=== PATIENT | female | born 1940 | race Caucasian/White ===

== ENCOUNTER 2021-04-05 17:56 | Emergency (ER) | payer MEDICARE, SELFPAY ==
[2021-04-05 18:05] VITALS: BP 157/55; PULSE 89; RESP 16; TEMP 36.4; O2SAT 97
--- NOTE | 2021-04-05 18:15 | DI.RAD_ITS ---
Exam(s) XR FINGER LT RING EXAM: XR FINGER LT RING EXAM DATE/TIME: CLINICAL HISTORY: deformity after fall, concern for dislocation. TECHNIQUE: 2D digital imaging was performed of the left finger. Views were obtained. PA/AP, obliq ue, and lateral views were obtained. COMPARISON: None. FINDINGS: BONES: No acute fracture is present. No bony destructive lesion is seen. Osteopenia. JOINTS: No dislocation is present. SOFT TISSUE: Mild soft tissue swelling. IMPRESSION: No evidence of acute fracture or dislocation. DATA REPOSITORY: RADIATION DOSE DELIVERED:
--- NOTE | 2021-04-05 18:18 | ED.GENADUL_ITS ---
Discharge Plan Disposition Patient Disposition: HOME Condition: Stable Discharge Details Clinical Impression: Dislocated finger, Chin laceration, Laceration of lip, Muscle spasm Primary Care Provider: Unknown,Unknown ED Provider: Savanna Melgar Home Meds and New Rx's Prescriptions: Continued amlodipine 2.5 mg Tablet 2.5 mg PO DAILY RF: 0 simvastatin 20 mg Tablet 20 mg PO DAILY RF: 0 losartan-hydrochlorothiazide 100-12.5 mg Tablet 1 tab PO DAILY RF: 0 Discharge Instructions Instructions: Cephalexin (By mouth), Oxycodone, Rapid Release (By mouth), Laceration (ED), Muscle Spasm (ED) Additional Instructions: Your imaging today is reassuring. No fracture or dislocation. Your neck does have findings to suggest whip lash as discussed. To help with muscle spasm, encourage hydration, use heat or ice, gentle stretching and Tylenol and/or Ibuprofen. You may use the oxycodone as prescribed for pain if this is insufficient. Please do not drink alcohol or drive while taking this medication. Keep in a safe place. Please keep your splint on your finger until evaluated by orthopedics. Please call primary care tomorrow to arrange for follow up with orthopedics once you return home for finger dislocation. In regard to your mouth laceration, you have a through and through wound from ch in to inner lip. Please rinse with salt water after every meal and before bed. To prevent infection, please take the antibiotics as prescribed. Please return in one week for the sutures on your chin to be removed and wound evaluated. If you develop fevers/chills, increased pain or other new/worsening symptoms please seek care urgently once again. Discharge Data Discharge Date/Time-TO BE ENTERED AT DEPARTURE: 04/05/21 20:41 Medical Decision Making Patient is a pleasant 80-year-old female presenting today with chief complaint of facial trauma and left ring finger trauma after fall today. She reports that she over a rug and fell striking her chin on the floor. Denies any headache. No loss of consciousness. She denies any pain in her neck. Denies any shortness of breath or chest pain. Patient did suffer a laceration under the chin that goes through and through into the inner aspect of the lower lip. She reports that she did have 1 glass of wine prior to the fall. However, states that this is not unusual and that she typically has a glass of wine daily. Also suffered injury to the left ring finger leading to flexion deformity. Unknown tetanus status, patient feels that this is likely out of state. Will update today. On exam, patient appears nontoxic. Vital signs are stable. No evidence to suggest a skull fracture. However, she does have significant laceration under the chin that extends up through the lower lip. This does not go under the tongue or behind the teeth. No active bleeding. No evidence to suggest fracture. Patient is able to break tongue blade on both sides of her teeth. She does not have any midline cervical tenderness. Good range of motion. No pain on palpation about the chest, abdomen. Pelvis is stable. No saddle paresthesias. No midline tenderness in the spine. She does have deformity to the left ring finger. At the PIP joint, patient is seem to have locked in flexion. However, with passive extension it seems to release and allow for movement. However, when she fully flexes again the finger again becomes stuck in this position. Sensation is intact, capillary refill intact. No focal fracture deformity. Will obtain x-ray of the left ring finger. Patient's age as well as that she had alcohol prior to arrival has no significant fall, I do feel that imaging of her head and neck would be appropriate. We will give morphine for discomfort.. FINDINGS: Brain: No edema or hemorrhage. Cerebral ventricles: No ventriculomegaly. Paranasal sinuses: No acute sinusitis. Mastoid air cells: No mastoid effusion. Bones/joints: No acute fracture. Soft tissues: No suspicious lesions. IMPRESSION: No acute intracranial findings FINDINGS: Orbital cavity: The bony orbits are intact. The globe and lens are intact bilaterally. No significant retroconal collections. Bones/joints: Allowing for dental artifact mandible is intact. No acute fracture with attention to the zygomatic arches, pterygoid plates, maxilla, nasal bones, pterygoid plates, sphe noid bone. Paranasal sinuses: Minor mucosal thickening in the maxillary sinuses. Soft tissues: Soft tissue swelling and emphysema in the left pre mandibular region associated with a laceration. IMPRESSION: No acute bony pathology. FINDINGS: Bones/joints: Straightening of the normal cervical lordosis. No acute fracture or subluxation. Discs/Spinal canal/Neural foramina: Multilevel degenerative changes, multilevel neural foraminal and central canal stenosis . Lungs: No consolidation. Soft tissues: Coarse calcifications in the region of ligamentum nuchae, probably chronic soft tissue trauma. IMPRESSION: No cervical spine fracture Discussed findings with the patient. Patient discussed with/benefits as well seasonal steps assisted with closure. She voices understanding and wishes to proceed. Please see procedure note. Patient tolerated this well. Patient was sufficiently anesthetized with 1% lidocaine With epinephrine. Wound was explored to base in a bloodless field. Copiously irrigated. I not note any foreign body or debris. Absorbable stitches were placed internally and patient was closed with simple interrupted externally. We discussed wound care in depth. Particularly with the internal wound, I would like to to rinse with salt water frequently to help with any type of infection. With this through and through wound, I am concerned about potential infection. We will begin her on Keflex. In regard to the patient's finger, I am concerned for potential ligamentous injury. Patient will be splinted in extension. Encourage rest, ice, elevation. Tylenol and ibuprofen as needed for discomfort. Patient will be discharged home with small amount of oxycodone to help with the mouth and discomfort from her laceration. We did discuss safety regarding constipation. I asked that she not have any alcohol while using this medication. Encourage hydration. Advised ice to affected areas. I did encourage that she try to sleep in a more upright position swelling. Patient is from [place] and will be returning home soon. Is unclear if she will have the sutures removed here or at home based on when she goes back to [place]. And also she has been the week. Return precautions in regard to infection or other complication were discussed. All of her questions and concerns were addressed and she is in agreement this plan. Family picked up patient. HPI General Mode of arrival: ambulatory . Date/Time Provider Initiated Documentation: 04/05/21 18:18 . Limitations to Documentation: no limitations . Information obtained by: patient and RN notes reviewed . History of Present Illness 80 year old F presents to the emergency department with the chief complaint of chin/mouth trauma, left ring finger pain after fall, described as moderate, with intensity rated at 4. Quality is described as aching, and is localized to the face, mouth, left and upper extremity. Patient reports no radiation. Patient started experiencing this minute(s) and it has been constant. Immobilization improves symptom(s), Movement worsens symptoms . Patient notes no other symptoms.. Patient did receive the following treatments prior to arrival, none Related Data Home Medications Medication Instructions Recorded Confirmed amlodipine 2.5 mg PO DAILY 04/05/21 04/05/21 losartan-hydrochlorothiazide 1 tab PO DAILY 04/05/21 04/05/21 simvastatin 20 mg PO DAILY 04/05/21 04/05/21 Allergies Allergy/AdvReac Type Severity Reaction Status Date / Time No Known Allergies Allergy Unverified 04/05/21 18:14 General Stated Complaint: Trauma AMILCAR: 3 Review of Systems Constitutional Constitutional: Reports as per HPI, Denies chills, Denies fatigue, Denies fever(s), Denies headache(s) and Denies weakness Eyes Eyes: Reports as per HPI, Denies blurry vision, Denies change in vision and Denies loss of vision ENT Ears, Nose, Mouth, and Throat: Denies abnormal hearing and Denies headache(s) Cardiovascular Cardiovascular: Reports as per HPI, Denies chest pain and Denies dyspnea Respiratory Respiratory: Reports as per HPI, Denies cough, Denies pain on inspiration, Denies pain with cough and Denies dyspnea Gastrointestinal Gastrointestinal: Reports as per HPI, Denies abdominal pain, Denies nausea and Denies vomiting Genitourinary Genitourinary: Reports as per HPI and Denies urinary incontinence Musculoskeletal Musculoskeletal: Reports as per HPI Integumentary/Breasts Skin/Breast: Reports as per HPI Neurologic Neurologic: Reports as per HPI, Denies abnormal hearing, Denies headache(s), Denies localized weakness, Denies loss of vision, Denies seizure-like activity and Denies weakness Endocrine Endocrine: Denies fatigue [facility] Social History Smoking/Tobacco Use Status: Current every day Tobacco Type: cigarettes Years smoked: 40 Smoking risk assessment performed?: Yes Alcohol Intake: current Alcohol type: wine Drug use: Never Substance use type: does not use Do you feel safe at home: Yes Do you feel safe in your relationship?: Yes Exam Const General: cooperative, healthy appearing, no acute distress, well developed, well groomed, anxious and ill appearing acutely Nutritional Appearance: average body habitus and well nourished Orientation: alert, awake and oriented x3 HENMT Head: normal to inspection, no palpable skull fracture, normocephalic and atraumatic Ears: hearing grossly normal bilaterally, external ears normal and TM's normal bilaterally General nose exam: external nose normal Face and sinus: normal facial exam, sinuses nontender, face symmetric, no fluctuance, no maxillary instability, no sinus tenderness and no tenderness Face images: 1. Through and through laceration. Wound is irregular. No significant surrounding swelling, ecchymosis. No active bleeding. Patient does have a wound that enters between teeth and lip intraorally. This does not go under the tongue or behind the teeth. No difficulty swallowing. No respiratory compromise. Mouth: oral mucosae normal, tongue normal, mouth trauma, no muffled voice and no trismus Teeth and gingiva: dentition normal Teeth image: 1. Area of through and through laceration Throat: posterior oropharynx normal Eyes General: appearance normal, both eyes and all related structures Visual Solorzano: normal visual solorzano by confrontation Alignment and Position: alignment normal Periorbital: periorbital findings normal Eyelids: eyelids normal Conjunctivae: conjunctivae normal Pupils: PERRL EOM: EOM intact bilaterally Neck Neck: normal visual inspection, full ROM, no lymphadenopathy, no meningeal signs, trachea midline and supple Chest Chest: normal inspection of the chest, normal palpation of entire chest wall, no crepitus and no localized rib tenderness Resp Effort & Inspection: normal respiratory effort, able to speak in complete sentences and no respiratory distress Auscultation: clear to auscultation bilaterally, no rales, no rhonchi and no wheezes Cardio Rate: regular rate Rhythm: regular rhythm Heart Sounds: S1 normal and S2 normal GI Inspection: normal to inspection, no abdominal wall ecchymosis, no edema and non-distended Palpation: soft, no hepatosplenomegaly, not firm, no guarding, no pulsatile mass es, not rigid and nontender Auscultation: normal bowel sounds Back/Spine/Pelvis Cervical Spine: normal cervical lordosis and cervical ROM normal Thoracic/Lumbar Spine: thoracic and lumbar spine normal to inspection, thoraco- lumbar ROM normal, No thoraco-lumbar ROM limited, No thoraco-lumbar spasm and No thoracic spinal tenderness Pelvis: no pain with anterior-posterior compression and no pain with lateral compression Skin Trauma: laceration Neuro General: patient alert, patient awake, patient oriented x3, gait normal, tone normal and moves all extremities Cranial Nerves: CN's II-XI intact bilaterally Cognition: normal cognition Speech: speech normal Gait: normal gait Motor: muscle tone normal throughout and strength 5/5 throughout Sensory Exam: no sensory deficits noted (no saddle paresthesias) Extrem General: full ROM, capillary refill normal, no pedal edema and no calf tenderness Hand/finger images: 1. Patient is holding finger in flexion deformity with finger flexed at 90 degrees. However, this is easily able to be straightened without any discomfort. She is able to hold it there for a brief time with any type of recurrent flexion immediately popped back to 90 and she stuck once again. No palpable deformity. No significant swelling. Sensation is intact. Capillary refill is intact. 2+ distal pulses. No pain elsewhere about the hand or wrist. Psych Appearance: grossly normal and well kempt Mental Status: mental status grossly normal Speech and Movement: speech and movement normal Course Vital Signs Vital signs: Vital Signs Temperature 36.4 C L 04/05/21 18:05 Pulse 89 04/05/21 18:05 Respiratory Rate 16 04/05/21 18:05 Blood Pressure 157/55 H 04/05/21 18:05 Pulse Oximetry 97 04/05/21 18:05 Temperature 36.4 C L 04/05/21 18:05 Temperature Source Tympanic 04/05/21 18:05 Pulse 89 04/05/21 18:05 Respiratory Rate 16 04/05/21 18:05 Respiratory Effort Non-Labored 04/05/21 18:10 Blood Pressure 157/55 H 04/05/21 18:05 Blood Pressure Position Sitting 04/05/21 18:05 Pulse Oximetry 97 04/05/21 18:05 Oxygen Delivery Method Room Air 04/05/21 18:05 Oxygen Flow Rate 0 04/05/21 18:05 Pain Level 4 04/05/21 18:05 PAWSS Have you Been Recently Intoxicated or Drunk Within the Last 30 days?: No Have you Ever Experienced Previous Episodes of Alcohol Withdrawal?: No Have you ever Experienced Withdrawal Seizures?: No Have you ever Experienced Delirium Tremens(DT)s?: No Have you ever undergone Alcohol Rehabilitation Treatment (i.e, inpt ot outpatient treatment programs)?: No Have you ever Experienced Blackouts?: No Have you ever Combined Alcohol with other Downers within the last 90 days?: No Have you ever Combined Alcohol with any other Substance of Abuse during the last 90 days?: No Positive Blood Alcohol level on Presentation? [PCS.BAL]: No Evidence of Increased Autonomic Activity (i.e. HR>120, tremor, sweating, agitation, nausea)?: No Result: 0
--- NOTE | 2021-04-05 18:27 | DI.CT_ITS ---
Exam(s) CT HEAD CERV SPINE FACIAL WO EXAM: CT HEAD CERV SPINE FACIAL WO CLINICAL HISTORY: fall. TECHNIQUE: Imaging Protocol: Axial computed tomography images with coronal and sagittal reformatted images were created and reviewed COMPARISON: No exams were available for comparison FINDINGS: CT Head: Ventricles and Extra axial spaces: Normal in size and morphology for the patient's age. Hemorrhage: None. Cerebral parenchyma: No acute territorial infarct. Midline shift: None. Brainstem/Cerebellum: Normal. Calvarium: Normal. Visualized Paranasal sinuses/Mastoids: Clear. Soft Tissues: Unremarkable. CT Face: There is artifact due to the patient's dental amalgam. Facial Bones: No definite fracture is noted in facial bones. Sinuses and Mastoids: Mucosal thickening is seen in the maxillary sinuses bilaterally. The remainin g visualized paranasal sinuses and mastoid air cells are clear. Globes, extraocular muscles, optic nerves and retrobulbar fat: Normal. Upper aerodigestive tract: Normal. Mandible and bilateral temporomandibular joints: Normal. Soft tissues: Normal. CT Cervical Spine: Bones: No acute fracture or subluxation. Degenerative changes are seen in the cervical spine. Soft Tissues: Unremarkable. Lung Apices: Clear. IMPRESSION: 1. No acute intracranial process. 2. No acute fracture or subluxation in the cervical spine. 3. No acute facial fracture. RADIATION DOSE DELIVERED: 2,120.1mGy.cm Total DLP DATA REPOSITORY: All CT scans at this facility are submitted to the National Radiology Data Registry (NRDR) Dose Index Registry (DIR) with the [employer] ([employer]). RADIATION OPTIMIZATION: All CT scans at this facility use at least one of these dose optimization te chniques: automated exposure control; mA and/or kV adjustment per patient size (includes targeted exa ms where dose is matched to clinical indication); or iterative reconstruction.
--- NOTE | 2021-04-05 19:48 | DI.VRAD_ITS ---
PROCEDURE INFORMATION: Exam: XR Left Finger(s) Exam date and time: 04/05/2021 19:10 Age: 80 years old Clinical indication: Other: Deformity after fall, concern for dislocation TECHNIQUE: Imaging protocol: XR Left fingers. Views: Minimum 2 views. COMPARISON: No relevant prior studies available. FINDINGS: Bones/joints: Chronic appearing small erosion adjacent to the 5th metacarpal head. Interphalangeal degenerative changes. The bones are demineralized. No acute fracture or listhesis is seen with attention to the 4th phalanges. Soft tissues: Digital soft tissue swelling. IMPRESSION: No acute bony pathology. Dictated and Authenticated by: Jazmyne Bowman MD. Ordering:JASMIN Corrales MD
[2021-04-05 20:02] VITALS: BP 129/50; PULSE 67; O2SAT 98
--- NOTE | 2021-04-05 20:02 | DI.VRAD_ITS ---
PROCEDURE INFORMATION: Exam: CT Head Without Contrast Exam date and time: 04/05/2021 18:39 Age: 80 years old Clinical indication: Other: Fall, trauma to chin; Additional info: Deformity after fall, concern for dislocation TECHNIQUE: Imaging protocol: Computed tomography of the head without contrast. Radiation optimization: All CT scans at this facility use at least one of these dose optimization techniques: automated exposure control; mA and/or kV adjustment per patient size (includes targeted exams where dose is matched to clinical indication); or iterative reconstruction. COMPARISON: No relevant prior studies available. FINDINGS: Brain: No edema or hemorrhage. Cerebral ventricles: No ventriculomegaly. Paranasal sinuses: No acute sinusitis. Mastoid air cells: No mastoid effusion. Bones/joints: No acute fracture. Soft tissues: No suspicious lesions. IMPRESSION: No acute intracranial findings. PROCEDURE INFORMATION: Exam: CT Maxillofacial Without Contrast Exam date and time: 04/05/2021 18:39 Age: 80 years old Clinical indication: Other: Fall, trauma to chin; Additional info: Deformity after fall, concern for dislocation TECHNIQUE: Imaging protocol: Computed tomography images of the face without contrast. Radiation optimization: All CT scans at this facility use at least one of these dose optimization techniques: automated exposure control; mA and/or kV adjustment per patient size (includes targeted exams where dose is matched to clinical indication); or iterative reconstruction. COMPARISON: No relevant prior studies available. FINDINGS: Orbital cavity: The bony orbits are intact. The globe and lens are intact bilaterally. No significant retroconal collections. Bones/joints: Allowing for dental artifact mandible is intact. No acute fracture with attention to the zygomatic arches, pterygoid plates, maxilla, nasal bones, pterygoid plates, sphenoid bone. Paranasal sinuses: Minor mucosal thickening in the maxillary sinuses. Soft tissues: Soft tissue swelling and emphysema in the left pre mandibular region associated with a laceration. IMPRESSION: No acute bony pathology. PROCEDURE INFORMATION: Exam: CT Cervical Spine Without Contrast Exam date and time: 04/05/2021 18:39 Age: 80 years old Clinical indication: Other: Fall, trauma to chin; Additional info: Deformity after fall, concern for dislocation TECHNIQUE: Imaging protocol: Computed tomography images of the cervical spine without contrast. Radiation optimization: All CT scans at this facility use at least one of these dose optimization techniques: automated exposure control; mA and/or kV adjustment per patient size (includes targeted exams where dose is matched to clinical indication); or iterative reconstruction. COMPARISON: No relevant prior studies available. FINDINGS: Bones/joints: Straightening of the normal cervical lordosis. No acute fracture or subluxation. Discs/Spinal canal/Neural foramina: Multilevel degenerative changes, multilevel neural foraminal and central canal stenosis . Lungs: No consolidation. Soft tissues: Coarse calcifications in the region of ligamentum nuchae, probably chronic soft tissue trauma. IMPRESSION: No cervical spine fracture. Dictated and Authenticated by: Jazmyne Bowman MD. Ordering:JASMIN Corrales MD
[2021-04-05 20:03] VITALS: O2SAT 97
[2021-04-05 20:10] VITALS: O2SAT 99
[2021-04-05 20:17] VITALS: BP 139/81; PULSE 63; O2SAT 98
[2021-04-05 20:20] VITALS: O2SAT 97
[2021-04-05] MEDS: Ibuprofen 600 MG TAB PO (20:33)
[2021-04-05] MEDS: Acetaminophen 500 MG TAB 1000 MG PO (20:33)
== END 2021-04-05 20:41 | disposition home or self-care (01) ==
PROVIDERS: Emergency Provider Physician Assistant
DX: S01.81XA Laceration without foreign body of other part of head, initial encounter (principal); S01.511A Laceration without foreign body of lip, initial encounter; S63.255A Unspecified dislocation of left ring finger, initial encounter; M62.838 Other muscle spasm; W01.0XXA Fall on same level from slipping, tripping and stumbling without subsequent striking against object, initial encounter
CPT/HCPCS: 29130; 36415; 90471; 96374; 99284; 70450; 70486; 72125; 73140

== ENCOUNTER 2021-04-12 07:24 | Emergency (ER) | payer MEDICARE, SELFPAY ==
[2021-04-12 07:32] VITALS: BP 135/59; PULSE 75; RESP 18; TEMP 36.9; O2SAT 97
--- NOTE | 2021-04-12 07:33 | ED.GENADUL_ITS ---
Discharge Plan Disposition Patient Disposition: HOME Condition: Good Discharge Details Clinical Impression: Visit for suture removal Primary Care Provider: Unknown,Unknown ED Provider: Kelton Roblero Home Meds and New Rx's Prescriptions: No Action amlodipine 2.5 mg Tablet 2.5 mg PO DAILY RF: 0 simvastatin 20 mg Tablet 20 mg PO DAILY RF: 0 losartan-hydrochlorothiazide 100-12.5 mg Tablet 1 tab PO DAILY RF: 0 Discharge Instructions Additional Instructions: Your sutures were removed. If you notice any worsening of your symptoms, or any new symptoms such as vomiting, diarrhea, fever, chills, shortness of breath, chest pain, numbness, weakness, or fainting , please return immediately to the emergency department for reevaluation. Please follow up with your primary care provider as soon as possible for reassessment and reevaluation. As always, it was a pleasure participating in your medical care today. Medical Decision Making Patient presents for suture removal. She had a laceration over 5 days ago to her chin. 3 simple interrupted sutures were placed. She denies redness drainage pain or other complication. Sutures were removed without complication. All 3 sutures came out. There is no evidence of redness drainage dehiscence. Skin images demonstrate excellent reapproximation. Patient will be discharged. I have extensively reviewed the treatment plan and discharge instructions with the patient. I have addressed all patient concerns at this time. The patient was made aware of what symptoms to monitor for that would warrant a return to the emergency department. Discussed the plan with the patient, they demonstrate verbal understanding and agreement with our assessment and plan at this time. The documentation in this chart was dictated using [employer] dictation software. Please excuse any dictation errors. HPI General Date/Time Provider Initiated Documentation: 04/12/21 07:25 . HPI Narrative: Patient presents for suture removal. She had a laceration over 5 days ago to her chin. 3 simple interrupted sutures were placed. She denies redness drainage pain or other complication. Related Data Home Medications Medication Instructions Recorded Confirmed amlodipine 2.5 mg PO DAILY 04/05/21 04/05/21 losartan-hydrochlorothiazide 1 tab PO DAILY 04/05/21 04/05/21 simvastatin 20 mg PO DAILY 04/05/21 04/05/21 Allergies Allergy/AdvReac Type Severity Reaction Status Date / Time No Known Allergies Allergy Unverified 04/05/21 18:14 General Stated Complaint: SutureRem AMILCAR: 5 Review of Systems All systems reviewed & are unremarkable except as noted in HPI and below PFSH Social History Smoking/Tobacco Use Status: Current every day Tobacco Type: cigarettes Years smoked: 40 Smoking risk assessment performed?: Yes Alcohol Intake: current Alcohol type: wine Drug use: Never Substance use type: does not use Do you feel safe at home: Yes Do you feel safe in your relationship?: Yes Exam Narrative Exam Narrative: Skin: Skin demonstrates well-healing reapproximated previous laceration site with no redness or drainage. All sutures were removed without complication or evidence of any. Course Vital Signs Vital signs: Respiratory Effort Non-Labored 04/12/21 07:31
== END 2021-04-12 07:39 | disposition home or self-care (01) ==
PROVIDERS: Emergency Provider Student in an Organized Health Care Education/Training Program
DX: S01.81XD Laceration without foreign body of other part of head, subsequent encounter (principal); X58.XXXD Exposure to other specified factors, subsequent encounter; Z48.02 Encounter for removal of sutures